=== PATIENT | male | born 1965 | race Caucasian/White ===

== ENCOUNTER → 2022-01-27 12:24 | Outpatient (CLI) | payer OTHER, SELFPAY ==
--- NOTE | 2022-01-27 12:29 | DI.CT.S_ITS ---
PROCEDURE: CT IVP A/P W/WO INDICATIONS: gross hematuria TECHNIQUE: Optional 5 mm thick noncontrast images acquired from the diaphragm to the symphysis pubis. After the administration of intravenous contrast, 5 mm thick images acquired from the diaphragm to the symphysis pubis after a 10-minute delay. 2 mm thick coronal and sagittal reformats were then performed of the kidneys and ureters. For radiation dose reduction, the following was used: automated exposure control, adjustment of mA and/or kV according to patient size. COMPARISON: None. FINDINGS: Image quality: Excellent. Lung bases: Lung bases are clear. Heart size is normal. Urinary system: Both kidneys are normal in size, without hydronephrosis or nephrolithiasis on pre-contrast images. No perinephric fat stranding. There is normal bilateral renal enhancement. Renal calyces appear normal in morphology when filled with contrast. Opacified portions of both ureters demonstrate normal caliber. Distal left ureter is not well opacified. Distal and mid right ureter is not well opacified. Bladder wall thickness is normal. No calcified bladder stones. Other solid organs: Liver is normal in size and enhancement. Gallbladder is unremarkable. Biliary system is non dilated. Pancreas enhances normally. Spleen is normal in size and enhancement. No adrenal nodules. Peritoneum and bowel: Bowel loops demonstrate normal wall thickness and caliber. No free fluid or air. Nodes and vessels: No retroperitoneal or mesenteric adenopathy by size criteria. Aorta and inferior vena cava are normal in size. Abdominal wall: No ventral hernias. Pelvis: No pathologic free pelvic fluid. No adenopathy. Fat containing left inguinal hernia. Hydroceles. Bones: No suspicious bony lesions. No vertebral body compression fractures. IMPRESSION: 1. No kidney stones. No hydronephrosis. 2. Ureters are suboptimally opacified. No filling defect or hydroureter. 3. No solid renal mass. Dictated by: Deandre Ellis M.D. on 01/27/2022 at 16:40 Approved by: Deandre Ellis M.D. on 01/27/2022 at 16:46
[2022-01-29 11:21] LABS: PSA Free % 16.6 % (.); PSA, Total 3.8 ng/mL (0.0-4.0)
== END ==
PROVIDERS: PCP Family Medicine; Referring Provider Specialist; Visit Provider Specialist
DX: N40.1 Benign prostatic hyperplasia with lower urinary tract symptoms (principal); N13.8 Other obstructive and reflux uropathy; R31.9 Hematuria, unspecified; Z80.42 Family history of malignant neoplasm of prostate; R97.20 Elevated prostate specific antigen [PSA]
CPT/HCPCS: 36415; 74178; 84153; 84154; Q9967

== ENCOUNTER → 2023-11-02 07:18 | Outpatient (CLI) | payer OTHER, SELFPAY ==
--- NOTE | 2023-11-02 07:21 | DI.MRI.S_ITS ---
PROCEDURE: MR PELIS WO/W CON INDICATIONS: Family history of prostate cancer TECHNIQUE: Coronal HASTE, axial T1 FSE with fat saturation, 3-plane nonbreath-hold T2 FSE. After the administration of contrast, dynamic axial, delayed axial and coronal VIBE or 2-D FLASH with fat saturation through the pelvis. Diffusion weighted imaging and ADC was performed. COMPARISON: None. FINDINGS: Image quality: Diffusion weighted and dynamic contrast enhanced images are diagnostic. There is motion on several sequences. Prostate: Gland size is 3.2 x 5.1 x 3.9 cm; ellipsoid gland volume is 33 mL. Preservation of zonal architecture. Lesion 1: Location: Left posterolateral peripheral zone near the gland base, on axial series four, image seven and coronal series five, image 15. Size: About 1.2 cm. T2W signal: Indistinct, asymmetrically moderately hypointense. DWI signal: Mildly hyperintense ADC signal: Minimally hypointense/normal Enhancement: No Extracapsular extension: No. No neurovascular involvement. PI-RADS score: Three There is mild diffusion hyperintensity also in the left lateral transition zone at the same level but without definite unique T2 hypointensity or enhancement. Genitourinary system: Bladder wall thickness is normal. Distal ureters are non distended. There is proteinaceous material filling seminal vesicles bilaterally of varying chronicity. Bowel and peritoneum: No pathologic free pelvic fluid. Inferior colon and small bowel loops are normal in caliber. Nodes and vessels: No pelvic or inguinal adenopathy by size criteria. Iliac vessels are normal in caliber. Soft tissues: No inguinal hernias. Bones: Marrow demonstrates normal overall signal, without lesions to suggest metastases. IMPRESSION: PI-RADS three lesion in the left posterolateral basal peripheral zone, and PI-RADS two transition zone lesion. No pelvic lymphadenopathy by size criteria. No aggressive osseous abnormality. Proteinaceous material or hemorrhage in the seminal vesicles. Dictated by: Emily Salcedo M.D. on 11/02/2023 at 15:53 Approved by: Emily Salcedo M.D. on 11/02/2023 at 16:07
[2023-11-03 09:44] LABS: PSA Free % 21.8 % (.); PSA, Total 3.4 ng/mL (0.0-4.0)
== END ==
PROVIDERS: PCP Family Medicine; Referring Provider Specialist; Visit Provider Specialist
DX: R97.20 Elevated prostate specific antigen [PSA] (principal); N42.9 Disorder of prostate, unspecified; Z80.42 Family history of malignant neoplasm of prostate
CPT/HCPCS: 36415; 72197; 84153; 84154; A9579